=== PATIENT | female | born 1985 | race Caucasian/White ===

== ENCOUNTER 2017-03-18 19:58 | Emergency (ER) | payer OTHER ==
[~2017-03-18] VITALS: Ht 167.6 cm; Wt 45.0 kg
[2017-03-18] MEDS ORDERED: AMOX500C2 PO (20:25)
[2017-03-18] MEDS ORDERED: HYDR-3965 PO (20:25)
[2017-03-18] MEDS ORDERED: KETOROLAC TROMETHAMINE 30 MG/ML VIAL IM ONE (22:00)
[2017-03-18 22:24] VITALS: BP 118/72
== END 2017-03-18 22:25 | disposition home or self-care (01) ==
LOC: EMS 20:02
DX: K08.89 Other specified disorders of teeth and supporting structures (principal)
CPT/HCPCS: 96372; 99283; J1885